=== PATIENT | female | born 1990 | race Caucasian/White ===

== ENCOUNTER 2017-08-20 11:43 | Emergency (ER) | payer OTHER ==
[~2017-08-20] VITALS: Ht 160 cm; Wt 65.0 kg
[~2017-08-20 11:43] MED LIST: FERR1TAB23; METH10TA2 PO; PREN1TAB29 PO
[2017-08-20 11:45] VITALS: TEMP 36.9; Ht 160 cm; Wt 65.0 kg
[2017-08-20] MEDS ORDERED: SULF800T23 PO (12:37)
[2017-08-20] MEDS ORDERED: CEPH500C PO (12:37)
[2017-08-20 12:48] VITALS: BP 114/73; PULSE 81; O2SAT 93
--- NOTE | 2017-08-20 16:55 | EMERGENCY ROOM VISIT NOTE ---
ED Visit Note First contact with patient: 11:45 CHIEF COMPLAINT: Abscess inner right thigh HISTORY OF PRESENT ILLNESS: This 27-year-old white female patient noticed a hard tender area on her inner right thigh 3 or 4 days ago. It is slowly getting larger, more painful and tender. No fever, chills, or loss of appetite. There has been no drainage from the area. There was no injury to the area preceding the infection. She states she has a history of MRSA infection. REVIEW OF SYSTEM: HEENT: No dizziness, visual problems, hearing loss, or tinnitus. There is no difficulty swallowing and no oral lesions are present. LYMPH: No adenopathy. PULMONARY: No cough, shortness of breath, sputum production or hemoptysis. CARDIOVASCULAR: No chest pain, palpitations, shortness of breath or peripheral edema. GASTROINTESTINAL: No diarrhea, constipation, nausea, vomiting, or abdominal pain. GENITOURINARY: No dysuria, frequency, urgency or nocturia. NEUROLOGIC: No weakness, muscle tenderness, epilepsy or history of neurological problems. MUSCULOSKELETAL: No history of joint tenderness/swelling. No history of arthritis or arthralgias. SKIN: No rashes. History of skin abscesses. ENDOCRINE: No history of diabetes, thyroid disorders, or abnormal hair growth. PMH: Significant for opiate dependence and overdose, history of scabies, and asthma. Family history: Noncontributory. Current medications: Reviewed and filed in patient's chart Allergies: NKDA SOCIAL HISTORY: Patient lives at home. Employed. PHYSICAL EXAM: Vital Signs: Reviewed Nurse's notes. Afebrile. Skin:Warm and dry with good turgor. No rashes. Visible skin abscesses present on the inner aspect of the mid thigh. Large area of induration and erythema is present, approximately 12 cm in diameter. There is a more intense area of induration of approximately 2-1/2-3 cm in diameter. There is a central darker area suggesting underlying abscess. No ecchymosis. It is firm and significantly tender to touch. The patient is not diaphoretic. No abrasions. No active drainage. No lymphangitis. Musculoskeletal: Patient has intact motor function to her hip and knee without discomfort. Neurologic: Gross sensation is intact across the right thigh by soft touch. EMERGENCY DEPARTMENT COURSE: Informed oral consent was obtained for I&D. Skin was cleansed with Betadine and draped with sterile draping. A field block was performed using 6 mL 1% plain buffered lidocaine. #11 blade was used sharply incised the abscess. A moderate amount of pus and chunky material was expressed. Wound was irrigated copiously using Betadine diluted with normal sterile saline under jet spray lavage. Wound was probed with a needle motor vehicle escort driver and no additional material was expressed. A sterile gauze pressure dressing was applied. DIAGNOSIS: Abscess of the right thigh DISCHARGE INSTRUCTIONS & TREATMENT: Patient was educated regarding today's findings. Conservative care measures were discussed. Likelihood of this being related to her previous MRSA infections was discussed. A pressure dressing was applied. Change the dressing if it becomes soiled or blood-stained, or in about 36 hours. Cephalexin, 500 mg 4 times a day for 7 days. Bactrim DS one pill 2 times a day 7 days. Tylenol and Motrin every 6 hours as needed for discomfort. Warm moist compresses to the area several times per day to promote drainage. Return if any problems such as fever or increasing pain. See a general surgeon if an abscess re-occurs in the same area in the future for consideration of excision of the cyst. Abscess handout was provided. Possibility of non-MRSA abscess, retained foreign body, insect bite, and spider bite were considered among others. Problem List Medical Problems: (1) Asthma, Unspecified Status: Chronic (2) Deliver-Single Liveborn Status: Resolved (3) Enterobiasis Status: Resolved (4) Opiate overdose Status: Resolved (5) Scabies Status: Resolved Current/Historical Medications Scheduled Cephalexin Monohydrate (Keflex), 500 MG PO QID Ferrous Sulfate (Iron), DAILY Methadone Hcl (Dolophine), 80 MG PO DAILY Sulfa/Trimethoprim (Bactrim Ds 800MG/160MG), 1 TAB PO BID Allergies Coded Allergies: No Known Allergies (Unverified , 08/20/17) Vital Signs Date Time Temp Pulse Resp B/P (MAP) Pulse Ox O2 Delivery O2 Flow Rate FiO2 08/20/17 12:48 81 17 114/73 93 08/20/17 11:45 36.9 88 18 110/73 96 Room Air Departure Information Impression Primary Impression: Skin abscess Dispostion Home / Self-Care Condition GOOD Prescriptions Sulfa/Trimethoprim (Bactrim Ds 800MG/160MG) Tab 1 TAB PO BID, #14 TAB Prov: Danny Price,P.A. 08/20/17 Cephalexin Monohydrate (Keflex) 500 Mg Cap 500 MG PO QID, #28 CAP Prov: Danny Price,P.A. 08/20/17 Forms HOME CARE DOCUMENTATION FORM, MOTRIN USE, IMPORTANT VISIT INFORMATION Patient Instructions My [facility], ED Abscess IandD Additional Instructions Warm moist compresses to the area several times per day Remove the dressings tomorrow night Cleanse daily with soap and water Keflex one pill 4 times a day 7 days Bactrim one pill twice a day 7 days Ibuprofen 600 mg every 6 hours with food. Follow-up with your PCP as needed Return to the ED or follow-up with your PCP for any acute worsening of redness or drainage
== END 2017-08-20 12:50 | disposition home or self-care (01) ==
LOC: C.EDB 11:45 → C.EDD 12:50
DX: L02.415 Cutaneous abscess of right lower limb (principal); F11.20 Opioid dependence, uncomplicated; J45.909 Unspecified asthma, uncomplicated; Z88.5 Allergy status to narcotic agent

== ENCOUNTER 2019-04-08 07:59 | Inpatient (IN) ==
[2019-04-08] MEDS ORDERED: miSOPROStoL 50 MCG TAB PO ONE (17:47)
[2019-04-08] MEDS ORDERED: OXYTOCIN 30 UNITS/500 ML BAG IV PRN (17:47)
[2019-04-08] MEDS ORDERED: miSOPROStoL 50 MCG TAB ONE (18:13)
[2019-04-08 18:18] LABS: Hemoglobin 7.8 g/dL (12.0-16.0); Mean Corpuscular Hemoglobin 19.5 pg (25-34); RDW Coefficient of Variation 16.7 % (11.5-14.5); RDW Standard Deviation 39.7 fL (36.4-46.3); White Blood Count 6.34 K/uL (4.8-10.8)
[2019-04-08 18:29] LABS: Platelet Count 96 K/uL (130-400); Platelet Estimate Decreased (Normal)
[2019-04-08] MEDS ORDERED: miSOPROStoL 50 MCG TAB PO PRN (23:50)
[2019-04-09] MEDS: LACTATED RINGER'S 1,000 ML IV PRN ×3 (01:10→06:28)
[2019-04-09] MEDS ORDERED: fentaNYL citrate 100 MCG/2 ML VIAL ONE (01:12)
[2019-04-09] MEDS ORDERED: BUPIVACAINE 0.25% 30 ML VIAL ONE (01:12)
[2019-04-09] MEDS ORDERED: ePHEDrine sulfate 50 MG/ML AMP ONE (01:12)
[2019-04-09] MEDS ORDERED: fentaNYL 2MCG/ML ROPIV 1.25MG/ML 100 ML BAG EPI ONE (01:13)
[2019-04-09 01:53] LABS: Platelet Count 104 K/uL (130-400)
[2019-04-09 01:54] LABS: Platelet Estimate Decreased (Normal)
--- NOTE | 2019-04-09 02:08 | Anesthesiology Consultation ---
Date of Service April 09, 2019 Assessment & Plan Chart Review Chart Review: Patient NOT seen in Pre Admission Testing and Acceptable Risk for Labor Epidural Consults Requested none ASA ASA3 Proposed Anesthesia Anesthesia Type: Labor Epidural Risk / Benefits Reviewed With: PT / POA / Parent / Guardian, Accepts Plan and Informed Consent Obtained History Height/Weight Height: 5 ft 3 in Weight: 79.379 kg Allergies Allergy/AdvReac Type Severity Reaction Status Date / Time No Known Allergies Allergy Unverified 08/20/17 12:03 Medications Home Medications Medication Instructions Recorded Confirmed Last Taken Methadone Hcl (Dolophine) 102 mg PO DAILY #0 tab 04/13/16 04/08/19 04/08/19 0600 PNV cmb#95-ferrous fumarate-FA 1 tab PO DAILY 03/28/19 04/08/19 04/08/19 [] 0600 Active Medications Generic Name Dose Route Start Last Admin Trade Name Freq PRN Reason Stop Dose Admin Lactated Ringer's 1,000 mls @ 125 mls/hr 04/08/19 17:47 04/09/19 02:10 Lr IV 04/10/19 17:46 999 mls/hr .Q8H PRN Administration L&D Protocol Protocol Misoprostol 50 mcg 04/08/19 23:50 04/08/19 23:56 Cytotec PO 05/08/19 23:49 50 mcg Q4 PRN Administration induction NPO Date Last Intake of Fluids: 04/09/19 Time Last Intake of Fluids: 02:09 Date Last Intake of Solids: 04/08/19 Time Last Intake of Solids: 17:00 Past Medical History Medical History Heroin abuse Patient reports that she is Hepatitis C positive. She has not used IV Heroin in 4 years. Has been Methadone for 4 years. Exercise / Class Metabolic Activity II 4-5 Yardwork/Stairs/Walk up hill Negative for chest pain or shortness of breath. Past Family History Family History Other No known health problems Past Surgical History Surgical History No history of previous surgery Past Anesthesia History No Family Hx of Anesthesia Complications History of PONV No Hx of Motion Sickness Social History Smoking Status: Never smoker Hx Alcohol Use: No Hx Substance Use: No substance use type: former substance user Review of Systems Patient denies history of abnormal bleeding or bleeding disorder. Patient denies active use of anticoagulants other than low dose aspirin. Patient denies numbness, tingling or weakness in lower extremities. Physical Exam Vital Signs Last Vital Signs Temp 36.7 C 04/08/19 23:09 Pulse 83 04/09/19 02:03 Resp 18 04/08/19 23:09 BP 142/90 H 04/09/19 02:03 Constitutional + obese (Gravid uterus) ENMT Mouth: + dentition abnormality (Molars broken and worn down); no TMJ abnormality and oral opening not small Thyromental Distance: > or= 3.5 Finger Breadths Mallampati Class: III Neck normal visual inspection; neck extension not limited Respiratory normal respiratory effort Auscultation: lungs clear to auscultation bilaterally Cardiovascular Rate/Rhythm: regular rate and regular rhythm Heart Sounds: no murmur Neurologic moves all extremities Psychiatric Orientation: alert and oriented x 3 Testing Laboratory Results 04/09/19 01:21
[2019-04-09] MEDS ORDERED: ePHEDrine sulfate 50 MG/ML AMP IV PRN (02:43)
[2019-04-09] MEDS ORDERED: NALBUPHINE HCL INJ 10 MG/ML AMP IV PRN (02:43)
[2019-04-09] MEDS ORDERED: NALOXONE HCL 1 MG in SODIUM CHLORIDE 0.9% 1000ML 1,000 ML IV PRN (02:43)
[2019-04-09] MEDS ORDERED: NALOXONE HCL 0.4 MG/1 ML VIAL/CARP IV PRN (02:43)
[2019-04-09] MEDS ORDERED: fentaNYL 2MCG/ML ROPIV 1.25MG/ML 100 ML BAG EPI PRN (02:43)
[2019-04-09] MEDS ORDERED: ONDANSETRON INJ 2 MG/ML 2 ML VIAL IV PRN (02:43)
[2019-04-09] MEDS ORDERED: DiphenhydrAMINE HCL 50 MG/ML VIAL IV PRN (02:43)
[2019-04-09] MEDS ORDERED: OXYTOCIN 30 UNITS/500 ML BAG IV PRN ×2 (03:40→08:16)
[2019-04-09] MEDS ORDERED: PATIENT'S OWN CONTROLLED MED PO SCH ×2 (06:00)
[2019-04-09] MEDS: METHADONE ORAL SOLN 2 MG/ML PO SCH ×2 (06:07→11:08)
[2019-04-09] MEDS ORDERED: METHYLERGONOVINE MALEATE 0.2 MG/ML AMP ONE (08:14)
[2019-04-09] MEDS ORDERED: OXYCODONE/ACETAMINOPHEN 5mg/325mg TAB PO PRN (08:16)
[2019-04-09] MEDS ORDERED: DIPHTHERIA/TETANUS/PERTUSSIS 0.5 ML SYR/VIAL IM ONE (08:16)
[2019-04-09] MEDS ORDERED: SUPERCREAM 0.870% 15 GM JAR EXT PRN (08:16)
[2019-04-09] MEDS ORDERED: IBUPROFEN 600 MG TAB PO PRN (08:16)
[2019-04-09] MEDS ORDERED: METHYLERGONOVINE MALEATE 0.2 MG/ML AMP IM ONE (08:16)
[2019-04-09] MEDS ORDERED: bisacodyL 10 MG SUPP PR PRN (08:16)
[2019-04-09] MEDS ORDERED: HYDROCORTISONE ACETATE 25 MG SUPP PR PRN (08:16)
[2019-04-09] MEDS ORDERED: ACETAMINOPHEN 325 MG TAB PO PRN (08:16)
[2019-04-09] MEDS ORDERED: BENZOCAINE 20% AER SPR 82.5 GM CAN EXT PRN (08:16)
[2019-04-09] MEDS ORDERED: ACETAMINOPHEN W/CODEINE #3 1 TAB PO PRN (08:16)
--- NOTE | 2019-04-09 08:43 | Anesthesia Procedure Note ---
Date of Service April 09, 2019 Anesthesia Post Epidural Note Vital Signs Vital Signs: Temp Pulse Resp BP Pulse Ox 37.0 C 87 22 132/82 100 04/09/19 07:06 04/09/19 08:38 04/09/19 07:06 04/09/19 08:34 04/09/19 08:38 Notes Mental Status: alert / awake / arousable and participated in evaluation Nausea / Vomiting: adequately controlled Pain: adequately controlled Airway Patency, RR, SpO2: stable & adequate BP & HR: stable & adequate Hydration State: stable & adequate Neuraxial Anesthesia: was administered and sensory block is resolving Anesthetic Complications: no major complications apparent and Pt Satisfied with anesthetic care Epidural: Removed without complications and With tip intact
--- NOTE | 2019-04-09 08:50 | Delivery Summary ---
DATE OF OPERATION: 04/09/2019 The patient is a 28-year-old 5, para 2. She has had 2 spontaneous ABs. No drug allergies. She is on methadone. She is at 102 mg a day. Vaginal beta strep negative. Due date 04/15/2019. Having a lot of contractions, pain and discomfort at home. Seen in the [facility] a couple times for false labor, ER 1 time. The patient requested induction at 39 weeks, brought in and given Cytotec p.o. About 5 hours later, another dose of Cytotec p.o. Following this, she got an epidural and started on Pitocin, ruptured membranes. Fluid was clear. She went to full dilatation, pushed out a live female via direct occiput anterior position over an intact perineum. Infant was suctioned through the mouth and the nose. A little trouble getting the shoulders out mainly due to the fact that the patient was not a very effective pusher, did kept the shoulders out intact. Cord was clamped and cut. Infant breathed and cried spontaneously. Apgars deferred to the nurses. Cord blood was taken. With IV Pitocin running, the placenta was removed intact. The inspection of the perineum revealed everything to be intact. No lacerations. A little episode of bleeding after removal of the placenta. She was given IM Methergine in addition to the Pitocin. ESTIMATED BLOOD LOSS: 200 mL. I attest to the content of the Intraoperative Record and any orders documented therein. Any exceptions are noted below. MTDD
[2019-04-09] MEDS ORDERED: PROMETHAZINE HCL 12.5 MG in SODIUM CHLORIDE 0.9% 50 ML IV ONE (09:53)
--- NOTE | 2019-04-09 10:13 | XRay Report ---
XR chest 1V portable CLINICAL HISTORY: Atypical chest pain COMPARISON STUDY: No previous studies for comparison. FINDINGS: The cardiac and mediastinal contours are normal. There is no evidence of focal pulmonary co nsolidation. There is no evidence of failure. No pleural effusions are visualized.[No pneumothorax is visualized. IMPRESSION: No active disease in the chest. Electronically signed by: Ronnie Rico M.D. 04/09/2019 10:12 AM
[2019-04-09 10:22] LABS: Mean Corpuscular Hgb Conc 30.2 g/dL (32-36)
[2019-04-09 10:40] LABS: Hematocrit (blood only) 31.5 % (37-47); Hemoglobin 9.5 g/dL (12.0-16.0); Mean Corpuscular Hemoglobin 19.5 pg (25-34); Mean Corpuscular Volume 64.5 fL (80-100); RDW Coefficient of Variation 17.1 % (11.5-14.5); RDW Standard Deviation 39.5 fL (36.4-46.3); Red Blood Count 4.88 M/uL (4.2-5.4); White Blood Count 10.83 K/uL (4.8-10.8)
[2019-04-09 10:43] LABS: Alanine Aminotransferase 37 U/L (12-78); Albumin Level 2.6 gm/dl (3.4-5.0); Aspartate Aminotransferase 46 U/L (15-37); BUN Creatinine Ratio 13.1 (10-20); Bilirubin Direct 0.2 mg/dl (0-0.2); Blood Urea Nitrogen 11 mg/dl (7-18); Calcium 8.7 mg/dl (8.5-10.1); Carbon Dioxide 20 mmol/L (21-32); Chloride 106 mmol/L (98-107); Creatinine Clr Calc Pharmacy 102.8 ml/min; Est GFR (African American) 113.7; Est GFR (Non-African American) 98.1; Glucose 72 mg/dl (70-99); Potassium 3.7 mmol/L (3.5-5.1); Sodium 137 mmol/L (136-145)
[2019-04-09 10:44] LABS: Platelet Count 112 K/uL (130-400)
--- NOTE | 2019-04-09 10:44 | Hospitalist Consultation ---
Date of Consultation April 09, 2019 Assessment & Plan (1) Chest pain: -Patient was complaining of chest pain during and briefly after delivery -Seems atypical in nature -EKG without acute ST changes, initial troponin negative -Continue to cycle cardiac enzymes -CXR clear, no signs of volume overload -Currently no tachycardia or hypoxia however if symptoms return or persist, consider PE work-up (2) Status post vaginal delivery: - day 0 -Management as per INSTALLATION ENGINEER (3) Thrombocytopenia: -Platelets 112K -Patient did receive a dose of Methergine -Monitor further signs of bleeding (4) Elevated alkaline phosphatase level: -Alk phos 207 -Likely due to -Continue to follow (5) History of heroin abuse: -On methadone, continue (6) DVT prophylaxis: -Teds/SCDs, ambulate Thank you for this consultation. We will follow the patient with you during their hospital stay. You can reach a member of the [facility] Hospitalist Team 24/01 via pager @ [phone]. Supervising Physician Co-Signing Physician Notes ATTENDING ADDENDUM: 28 YO F with hx of drug abuse on chronic methadone underwent elective induction at 39 weeks had vaginal delivery this morning during labour pt reports of sharp central chest pain with nausea symptom resolved in few minuted no other episode of recurrence chest xray /EKG normal study will cont to monitor Patricia rodriguez History of Present Illness Reason for Consultation: Chest pain Requesting Physician: Dr. Thibodeaux Attending Physician: Dr. Rodriguez History of Present Illness 28-year-old female who is status post vaginal delivery this morning. Patient presented for planned induction at 39 weeks. During delivery, and briefly after, patient had complained of some chest pain and the hospitalist was consul diony for further evaluation. Patient reports she also has some shortness of breath. Shortness of breath and chest pain have now completely resolved. She had some vomiting earlier. No hematemesis or coffee-ground emesis. She is now complaining of nausea and some low back pain. Prior to coming into the hospital for delivery, patient reports she has been feeling well. No other recent illnesses, fevers, chills. Denies abdominal pain and diarrhea. No lightheadedness, dizziness, diaphoresis, syncopal event. Allergies Allergy/AdvReac Type Severity Reaction Status Date / Time No Known Allergies Allergy Unverified 08/20/17 12:03 Home Medications Home Medications Medication Instructions Recorded Confirmed Type Methadone Hcl (Dolophine) 102 mg PO DAILY #0 tab 04/13/16 04/08/19 History PNV cmb#95-ferrous fumarate-FA 1 tab PO DAILY 03/28/19 04/08/19 History [] Patient History Medical History Heroin abuse Patient reports that she is Hepatitis C positive. She has not used IV Heroin in 4 years. Has been Methadone for 4 years. Surgical History No history of previous surgery Family History Other No known health problems Social History Preferred Language: Lao Communication Ability: Effective Line Production Cook Required: No Beliefs That Will Affect Care: None marital status: Single Current Living Situation: Parent and Family Current Living Situation Comment: lives with parents and children Other Information That Helps Us Care for You: No Feels Safe at Home: Yes Safety Concerns: Feels Safe At This Time Smoking Status: Never smoker Hx Alcohol Use: No Hx Substance Use: No Review of Systems Review of Systems: ROS per HPI, all other systems reviewed and negative Physical Exam Constitutional: WD/WN, vitals as above Eyes: PERRL, conjunctivae normal, anicteric sclerae ENMT: external ear and nose normal, oropharynx normal Respiratory: normal respiratory effort, lungs clear to auscultation Cardiovascular: Rate/Rhythm: regular rate and regular rhythm Vessels: normal peripheral pulses Extremities: no edema Gastrointestinal (Abdomen): normal bowel sounds, soft, nontender, no hepatosplenomegaly Musculoskeletal: no cyanosis or clubbing, extremities motor strength 5/5 Skin: no rashes, warm and dry Neurologic: PERRL, EOMI, accommodation nl, no face palsy, no dysarthria Psychiatric: A+Ox3, euthymic affect Results & Data Vital Signs (Past 12 Hours) Vital Signs Temp Pulse Resp BP Pulse Ox 04/09/19 10:13 71 99 04/09/19 10:12 71 161/95 H 04/09/19 10:08 79 98 04/09/19 10:03 72 98 04/09/19 09:58 69 97 04/09/19 09:53 72 95 04/09/19 09:48 70 96 04/09/19 09:43 70 99 04/09/19 09:42 67 154/94 H 04/09/19 09:38 80 99 04/09/19 09:33 95 H 97 04/09/19 09:31 105 H 91 04/09/19 09:28 74 99 04/09/19 09:23 73 96 04/09/19 09:18 78 95 04/09/19 09:13 78 96 04/09/19 09:11 78 144/88 H 04/09/19 09:08 79 97 04/09/19 09:03 76 99 04/09/19 08:58 87 93 04/09/19 08:53 81 99 04/09/19 08:51 84 92 04/09/19 08:49 82 146/90 H 04/09/19 08:48 86 99 04/09/19 08:43 83 100 04/09/19 08:42 85 94 04/09/19 08:38 87 100 04/09/19 08:34 96 H 132/82 04/09/19 08:33 93 H 98 04/09/19 08:28 97 H 98 04/09/19 08:23 96 H 98 04/09/19 08:21 104 H 143/88 H 04/09/19 08:18 103 H 98 04/09/19 08:13 114 H 98 04/09/19 08:08 149 H 90 04/09/19 08:06 146 H 91 04/09/19 08:03 137 H 100 04/09/19 08:00 149 H 90 04/09/19 07:58 127 H 98 04/09/19 07:53 117 H 100 04/09/19 07:48 102 H 139/87 100 04/09/19 07:43 115 H 97 04/09/19 07:38 112 H 93 04/09/19 07:34 106 H 137/84 04/09/19 07:33 97 H 100 04/09/19 07:28 108 H 100 04/09/19 07:23 102 H 100 04/09/19 07:19 114 H 129/67 04/09/19 07:18 125 H 100 04/09/19 07:13 102 H 98 04/09/19 07:08 91 H 99 10/07/19 07:06 37.0 C 22 04/09/19 07:05 116 H 92 04/09/19 07:04 100 H 136/88 04/09/19 07:03 99 H 97 04/09/19 06:58 96 H 99 04/09/19 06:53 109 H 99 04/09/19 06:50 101 H 140/88 04/09/19 06:48 105 H 99 04/09/19 06:43 107 H 99 04/09/19 06:38 109 H 100 04/09/19 06:34 97 H 132/84 04/09/19 06:33 102 H 100 04/09/19 06:28 107 H 100 04/09/19 06:23 103 H 100 04/09/19 06:19 106 H 129/77 04/09/19 06:18 100 H 99 04/09/19 06:13 115 H 98 04/09/19 06:10 104 H 89 L 04/09/19 06:08 92 H 100 04/09/19 06:04 108 H 126/89 04/09/19 06:03 96 H 100 04/09/19 05:58 96 H 100 04/09/19 05:53 104 H 100 04/09/19 05:51 85 135/92 04/09/19 05:48 86 99 04/09/19 05:43 83 100 04/09/19 05:38 87 100 04/09/19 05:34 36.8 C 78 18 141/93 H 04/09/19 05:33 89 100 04/09/19 05:28 85 99 04/09/19 05:23 88 99 04/09/19 05:19 83 144/92 H 04/09/19 05:18 100 H 98 04/09/19 05:13 90 99 04/09/19 05:08 81 100 04/09/19 05:04 81 137/98 04/09/19 05:03 79 99 04/09/19 04:58 82 99 04/09/19 04:53 79 100 04/09/19 04:49 75 138/91 04/09/19 04:48 79 99 04/09/19 04:43 97 H 100 04/09/19 04:38 76 100 04/09/19 04:35 79 137/81 04/09/19 04:33 84 100 04/09/19 04:28 80 100 04/09/19 04:23 85 100 04/09/19 04:20 80 148/86 H 04/09/19 04:18 91 H 99 04/09/19 04:13 81 99 04/09/19 04:08 74 98 04/09/19 04:04 71 140/88 04/09/19 04:03 76 97 04/09/19 03:59 76 93 04/09/19 03:58 77 100 04/09/19 03:53 74 99 04/09/19 03:48 82 98 04/09/19 03:43 90 98 04/09/19 03:38 79 99 04/09/19 03:34 82 132/82 04/09/19 03:33 36.7 C 86 16 100 04/09/19 03:28 90 98 04/09/19 03:23 72 100 04/09/19 03:19 71 18 132/76 04/09/19 03:18 82 99 04/09/19 03:13 75 98 04/09/19 03:08 72 99 04/09/19 03:03 78 99 04/09/19 03:01 78 18 137/80 04/09/19 02:58 74 100 04/09/19 02:54 74 133/79 04/09/19 02:53 79 99 04/09/19 02:49 83 18 134/77 04/09/19 02:48 76 99 04/09/19 02:43 79 97 04/09/19 02:42 80 134/80 04/09/19 02:41 84 133/82 04/09/19 02:38 82 137/83 98 04/09/19 02:37 82 137/78 04/09/19 02:35 87 131/68 04/09/19 02:33 86 150/79 H 99 04/09/19 02:31 92 H 143/82 H 04/09/19 02:29 85 18 137/79 04/09/19 02:28 85 99 04/09/19 02:27 91 H 129/100 04/09/19 02:23 103 H 99 04/09/19 02:18 95 H 99 04/09/19 02:03 83 142/90 H 04/08/19 23:09 36.7 C 75 18 136/86 Laboratory Results Short CBC 04/08/19 04/09/19 04/09/19 Range/Units 17:55 01:21 09:56 WBC 6.34 10.83 H (4.8-10.8) K/uL Hgb 7.8 L 9.5 L (12.0-16.0) g/dL Hct 26.0 L 31.5 L (37-47) % Plt Count 96 L 104 L 112 L (130-400) K/uL BMP 04/09/19 09:56 Sodium 137 Potassium 3.7 Chloride 106 Carbon Dioxide 20 L BUN 11 Creatinine 0.82 Glucose 72 Calcium 8.7 Cardiac Enzymes 04/09/19 Range/Units 09:56 Troponin I < 0.015 (0-0.045) ng/ml Liver Function 04/09/19 Range/Units 09:56 Total Bilirubin 0.6 (0.2-1) mg/dl Direct Bilirubin 0.2 (0-0.2) mg/dl AST 46 H (15-37) U/L ALT 37 (12-78) U/L Alkaline Phosphatase 207 H (45-117) U/L Albumin 2.6 L (3.4-5.0) gm/dl Diagnostic Findings CXR IMPRESSION: No active disease in the chest.
[2019-04-09 10:45] LABS: Platelet Estimate Decreased (Normal)
[2019-04-09 10:48] LABS: Alkaline Phosphatase 207 U/L (45-117); Bilirubin,Total 0.6 mg/dl (0.2-1); Total Protein 7.2 gm/dl (6.4-8.2); Troponin I < 0.015 ng/ml (0-0.045)
[2019-04-09] MEDS: DOCUSATE SODIUM 100 MG CAP PO SCH (21:13)
[2019-04-10] MEDS: METHADONE ORAL SOLN 2 MG/ML PO SCH (06:05)
[2019-04-10 07:21] LABS: Hematocrit (blood only) 27.7 % (37-47); Hemoglobin 8.3 g/dL (12.0-16.0); Mean Corpuscular Hemoglobin 19.6 pg (25-34); Mean Corpuscular Volume 65.3 fL (80-100); RDW Coefficient of Variation 17.3 % (11.5-14.5); RDW Standard Deviation 40.6 fL (36.4-46.3); Red Blood Count 4.24 M/uL (4.2-5.4); White Blood Count 8.08 K/uL (4.8-10.8)
[2019-04-10 07:26] LABS: Platelet Count 97 K/uL (130-400); Platelet Estimate Decreased (Normal)
[2019-04-10] MEDS: PRENATAL VITAMIN 1 TAB PO SCH (08:15)
[2019-04-10] MEDS: DOCUSATE SODIUM 100 MG CAP PO SCH ×2 (08:16→21:00)
--- NOTE | 2019-04-10 08:37 | Obstetrical Progress Note ---
Date of Service April 10, 2019 Physical Exam Physical Exam: abdomen soft and non tender no calf tenderness bleeding is scant hgb 8.3 ambulating well Results & Data Vital Signs (Past 12 Hours) Vital Signs Temp Pulse Resp BP 04/10/19 04:40 36.3 C L 61 17 130/88 04/09/19 23:40 36.7 C 68 18 132/85
--- NOTE | 2019-04-10 17:47 | Hospitalist Progress Note ---
Date of Service April 10, 2019 Assessment & Plan (1) Chest pain: No further recurrence of symptom -Patient was complaining of chest pain during and briefly after delivery -Atypical in nature, -EKG without acute ST changes, initial troponin negative -This x-ray within normal limit cardiac markers negative No other cardiac work-up needed (2) Status post vaginal delivery: - day 0 -Management as per PACKAGE WORKER (3) Thrombocytopenia: -Platelets [id number] -Patient did receive a dose of Methergine -Sign of symptoms of excessive bleeding as per nursing and patient Repeat CBC in a.m., ordered for a peripheral blood smear a.m. lab Liver function remains stable Repeat CBC as an outpatient in 1 week Will need to follow-up with family physician post hospital visit in a week (4) Elevated alkaline phosphatase level: -Alk phos 207 -Likely due to -Remains stable (5) History of heroin abuse: -On methadone, continue (6) DVT prophylaxis: -Teds/SCDs, ambulate Disposition: Remains medically stable to be discharged home per primary team Recommendations: Outpatient lab: CBC in 1 week, hospital follow-up with family physician in 1 week-will be added to the discharge instruction Dr. Rose will follow the patient tomorrow Thank you for this consultation. We will follow the patient with you during their hospital stay. You can reach a member of the [facility] Hospitalist Team 24/01 via pager @ [phone]. Subjective Did not had any other episode of chest pain No headache, no fever or chills No evidence of any excessive bleeding Physical Exam 2 Constitutional: WD/WN, vitals as above no acute distress Eyes: PERRL, conjunctivae normal, anicteric sclerae ENMT: external ear and nose normal, oropharynx normal Neck: trachea midline, no thyromegaly Respiratory: normal respiratory effort, lungs clear to auscultation Cardiovascular: RRR, no murmur, no edema Gastrointestinal (Abdomen): normal bowel sounds, soft, nontender, no hepatosplenomegaly Musculoskeletal: no cyanosis or clubbing, extremities motor strength 5/5 Skin: no rashes, warm and dry Neurologic: PERRL, EOMI, accommodation nl, no face palsy, no dysarthria Psychiatric: A+Ox3, euthymic affect Results & Data Vital Signs (Past 12 Hours) Vital Signs Temp Pulse Resp BP 10/08/19 15:10 36.9 C 79 16 134/72 04/10/19 07:38 36.6 C 76 16 134/89
[2019-04-10] MEDS ORDERED: bisacodyL 5 MG TABEC PO SCH (20:00)
[2019-04-11] MEDS: METHADONE ORAL SOLN 2 MG/ML PO SCH (05:58)
--- NOTE | 2019-04-11 07:31 | Obstetrical Progress Note ---
Date of Service April 11, 2019 Physical Exam Physical Exam: abdomen soft and non tender vaginal bleeding scant hgb 8.3 no calf tenderness ambulating well Results & Data Vital Signs (Past 12 Hours) Vital Signs Temp Pulse Resp BP 04/10/19 23:30 36.4 C L 71 18 134/90 04/10/19 19:35 36.7 C 77 20 125/84
[2019-04-11 08:01] LABS: Hematocrit (blood only) 26.4 % (37-47); Mean Corpuscular Hemoglobin 19.7 pg (25-34); Mean Corpuscular Hgb Conc 30.3 g/dL (32-36); RDW Coefficient of Variation 17.1 % (11.5-14.5); RDW Standard Deviation 40.5 fL (36.4-46.3); Red Blood Count 4.06 M/uL (4.2-5.4); White Blood Count 8.13 K/uL (4.8-10.8)
[2019-04-11] MEDS: PRENATAL VITAMIN 1 TAB PO SCH (08:33)
[2019-04-11] MEDS: DOCUSATE SODIUM 100 MG CAP PO SCH (08:34)
[2019-04-11 08:36] LABS: Platelet Count 125 K/uL (130-400); Platelet Estimate Decreased (Normal)
--- NOTE | 2019-04-11 09:51 | Hospitalist Progress Note ---
Date of Service April 11, 2019 Assessment & Plan (1) Chest pain: per Dr. Rodriguez notes: -Patient was complaining of chest pain during and briefly after delivery -Atypical in nature -EKG without acute ST changes, initial troponin negative -This x-ray within normal limit cardiac markers negative 04/11/2019 Patient denies recurrence of chest pain No shortness of breath Denies any other symptoms (2) Status post vaginal delivery: -Management as per PREPARER SAMPLES AND REPAIRS (3) Thrombocytopenia: -Platelets 16802F -Patient did receive a dose of Methergine -Sign of symptoms of excessive bleeding as per nursing and patient -Platelets 125 today Anemia Iron deficiency Hemoglobin 8.0 Iron level 31, ferritin level within normal range Continue iron supplementation Further work-up, repeat CBC, iron levels, and follow-up with primary care physician next week Peripheral smear: In summary, the patient has mild to moderate thrombocytopenia in the setting. She also has anemia which is consistent with iron deficiency. Patient had thrombocytopenia just before delivery so could consider possibility of very mild HELLP syndrome. Mild elevation of LFTs noted. Very rare spherocytes noted o n smear, but no schistocytes. No haptoglobin or LDH done. Certainly, patient has not had significant bleeding and platelet count is stable, and possibly recovering at this point. Continued monitoring of platelet count suggested. I do not see features to suggest other specific etiologies. Also, patient needs iron replacement for anemia. (4) Elevated alkaline phosphatase level: -Alk phos 207 -Likely due to -Remains stable (5) History of heroin abuse: -On methadone, continue (6) DVT prophylaxis: -Teds/SCDs, ambulate Disposition: Remains medically stable to be discharged home per primary team Recommendations: Outpatient lab: CBC in 1 week, hospital follow-up with family physician in 1 week- added to the discharge instruction Counseled patient on importance of following up with primary care physician She verbalized understanding, agreement with plan of care Thank you for this consultation. We will follow the patient with you during their hospital stay. You can reach a member of [facility] via pager @ [phone]. Subjective Follow-up for chest pain Seen sitting up in bed, comfortable, not in distress She feels fine overall Denies chest pain, shortness of breath, dizziness, headaches, abdominal pain Has intermittent vaginal spotting, this is improving as per patient ambulating fine in the hallways with no problems Denies other symptoms, states she is ready and would like to be discharged today Review of Systems Review of Systems: All systems reviewed & are unremarkable except as noted in HPI & below Physical Exam Physical Exam: General- oriented x 3, not in distress, speaks in sentences with no effort or accessory muscle use Eyes- anicteric Neck- no JVD Lungs- clear breath sounds bilaterally, no rales/wheezes Heart- normal rate, regular rhythm; no murmurs Abdomen- normal bowel sounds, nondistended, soft, nontender Extremities- no pretibial edema, no calf tenderness Neuro- alert, oriented x 3; no gross focal neurologic deficits Skin- warm & dry Results & Data Vital Signs (Past 12 Hours) Vital Signs Temp Pulse Resp BP 04/10/19 23:30 36.4 C L 71 18 134/90 Laboratory Results Laboratory Results - last 24 hr 04/11/19 04/11/19 04/11/19 07:46 09:40 09:40 WBC 8.13 RBC 4.06 L Hgb 8.0 L Hct 26.4 L MCV 65.0 L MCH 19.7 L MCHC 30.3 L RDW Std Deviation 40.5 RDW Coeff of Kiera 17.1 H Plt Count 125 L Platelet Estimate Decreased L Peripher Smr Path Cons Sodium 136 Potassium 4.6 D Chloride 104 Carbon Dioxide 26 Anion Gap 6.0 BUN 19 H D Creatinine 0.86 Est Cr Clr Drug Dosing 98.0 Est GFR ( Amer) 107.3 Est GFR (Non-Af Amer) 92.6 BUN/Creatinine Ratio 21.6 H Glucose 78 Calcium 9.1 Iron 31 L Ferritin 8.6 Folate 17.80
[2019-04-11 10:19] LABS: BUN Creatinine Ratio 21.6 (10-20); Calcium 9.1 mg/dl (8.5-10.1); Est GFR (African American) 107.3; Est GFR (Non-African American) 92.6; Potassium 4.6 mmol/L (3.5-5.1)
[2019-04-11 10:24] LABS: Ferritin 8.6 ng/ml (8-388)
[2019-04-11] MEDS ORDERED: FERROUS SULFATE 325 MG TAB PO SCH (17:00)
== END 2019-04-11 16:30 | disposition home or self-care (01) | DRG 805 ==
LOC: 4S1 17:13 → 4S2 04-09 11:36